=== PATIENT | male | born 1960 | race African-American/Black ===

== ENCOUNTER → 2017-02-13 | Outpatient (CLI) | payer OTHER ==
--- NOTE | 2017-02-13 13:15 | RADIOLOGY REPORT (SQ) ---
EXAM DESCRIPTION: LUMBAR SPINE COMPLETE COMPLETED DATE/TIME: 02/13/2017 11:29 am REASON FOR STUDY: SACROILIITIS, NOT ELSEWHERE CLASSIFIED M46.1 SACROILIITIS, NOT ELSEWHERE CLASSIFI ED M25.551 PAIN IN RIGHT HIP M25.552 PAIN IN LEFT HIP COMPARISON: None. NUMBER OF VIEWS: Five views including obliques. TECHNIQUE: AP, lateral, oblique, and sacral radiographic images acquired of the lumbar spine. LIMITATIONS: None. FINDINGS: MINERALIZATION: Normal. SEGMENTATION: Normal. No transitional anatomy. ALIGNMENT: Normal. VERTEBRAE: Maintained height. No fracture or worrisome bone lesion. DISCS: Preserved height. No significant osteophytes or end plate irregularity. POSTERIOR ELEMENTS: Hypertrophic facet changes are present at L5-S1. HARDWARE: None in the spine. PARASPINAL SOFT TISSUES: Normal. PELVIS: Intact as visualized. No fractures or worrisome bone lesions. SI joints intact. OTHER: No other significant finding. IMPRESSION: Facet arthropathy. There is no acute abnormality. TECHNICAL DOCUMENTATION: JOB ID: [id number] [employer]- All Rights Reserved
--- NOTE | 2017-02-13 13:16 | RADIOLOGY REPORT (SQ) ---
EXAM DESCRIPTION: SACROILIAC JOINTS COMPLETED DATE/TIME: 02/13/2017 11:29 am REASON FOR STUDY: SACROILIITIS, NOT ELSEWHERE CLASSIFIED M46.1 SACROILIITIS, NOT ELSEWHERE CLASSIFI ED M25.551 PAIN IN RIGHT HIP M25.552 PAIN IN LEFT HIP COMPARISON: None. NUMBER OF VIEWS: Three views. TECHNIQUE: AP and oblique views of the sacroiliac joints. LIMITATIONS: None. FINDINGS: MINERALIZATION: Normal. BONES: No acute fracture or dislocation. No worrisome bone lesions. No significant osteophytes. JOINTS: The sacroiliac joints are patent. No unusual widening, sclerosis, or fusion. SOFT TISSUES: No soft tissue swelling. No radio-opaque foreign body. OTHER: Facet arthropathy is present in the lower lumbar spine. IMPRESSION: Lower lumbar facet arthropathy with no acute abnormality of the sacroiliac joints. TECHNICAL DOCUMENTATION: JOB ID: [id number] [employer]- All Rights Reserved
--- NOTE | 2017-02-13 13:17 | RADIOLOGY REPORT (SQ) ---
EXAM DESCRIPTION: HIPS BILATERAL COMPLETED DATE/TIME: 02/13/2017 11:29 am REASON FOR STUDY: PAIN IN RIGHT HIP,PAIN IN LEFT HIP M46.1 SACROILIITIS, NOT ELSEWHERE CLASSIFIED M 25.551 PAIN IN RIGHT HIP M25.552 PAIN IN LEFT HIP COMPARISON: None. NUMBER OF VIEWS: Two views TECHNIQUE: AP pelvis and additional frog-leg view of both hips. LIMITATIONS: None. FINDINGS: MINERALIZATION: Normal. HIPS: No acute fracture or dislocation. No worrisome bone lesions. PELVIS AND SACRUM: No acute fracture or dislocation. No worrisome bone lesions. PUBIS AND ISCHIUM: No acute fracture. LOWER LUMBAR SPINE: Facet arthropathy is present at L5-S1. SOFT TISSUES: No findings. OTHER: No other significant finding. IMPRESSION: Lower lumbar facet arthropathy with normal hips. TECHNICAL DOCUMENTATION: JOB ID: [id number] [employer]- All Rights Reserved
--- NOTE | 2017-02-13 13:22 | RADIOLOGY REPORT (SQ) ---
EXAM DESCRIPTION: FEMUR BILATERAL 2 VIEWS COMPLETED DATE/TIME: 02/13/2017 11:29 am REASON FOR STUDY: PAIN IN RIGHT HIP,PAIN IN LEFT HIP M46.1 SACROILIITIS, NOT ELSEWHERE CLASSIFIED M 25.551 PAIN IN RIGHT HIP M25.552 PAIN IN LEFT HIP COMPARISON: None. NUMBER OF VIEWS: Two views. TECHNIQUE: Two radiographic images acquired of the right and left femur to include hip and knee in a t least one projection. LIMITATIONS: None. FINDINGS: MINERALIZATION: Normal. BONES: No acute fracture. No worrisome bone lesions. SOFT TISSUES: No obvious swelling or foreign body. OTHER: No other significant finding. IMPRESSION: NEGATIVE STUDY OF THE RIGHT AND LEFT FEMURS. NO RADIOGRAPHIC EVIDENCE FOR ACUTE INJURY. TECHNICAL DOCUMENTATION: JOB ID: [id number] [employer]- All Rights Reserved
== END ==
LOC: OD 10:17
PROVIDERS: ATTEND Internal Medicine
DX: M46.1 Sacroiliitis, not elsewhere classified (principal); M25.551 Pain in right hip; M25.552 Pain in left hip
CPT/HCPCS: 72110; 72200; 73522; 73552

== ENCOUNTER → 2017-03-16 | Outpatient (CLI) | payer OTHER ==
--- NOTE | 2017-03-16 10:22 | RADIOLOGY REPORT (SQ) ---
EXAM DESCRIPTION: MRI RT UPPER JOINT WITHOUT COMPLETED DATE/TIME: 03/16/2017 8:48 am REASON FOR STUDY: R SHOULDER PAIN M25.511 PAIN IN RIGHT SHOULDER COMPARISON: None. TECHNIQUE: Right shoulder images acquired and stored on PACS. Multiplanar imaging to include fat sen sitive sequences such as T1, water sensitive sequences such as FST2/STIR, cartilage sensitive sequenc es such as FSPD/gradient-echo sequences. LIMITATIONS: None. FINDINGS: BONE MARROW AND CORTEX: Mild subchondral cyst formation in the humeral head. JOINT OR BURSAL EFFUSION: No significant joint or bursal fluid. No suggestion of loose bodies. GLENO-HUMERAL ARTICULATION: Normal articulation. No subluxation. No cystic change. No osteophytes or cartilage loss. ACROMION AND AC JOINT: Type 2. No down-sloping or distal spur. Sub-acromial space maintained. No si gnificant AC joint arthropathy. ROTATOR CUFF AND INTERVAL: Intermediate signal throughout the cuff. Focal area of low signal series 7, image 11 which could represent micro hydroxyapatite deposition. No abnormality seen on recent federico in films to correlate. Linear high intrasubstance signal in the infraspinatus musculotendinous junct ion. No full-thickness tear. No rotator interval tear. No rotator interval thickening to suggest adhesive capsulitis. LABRUM AND BICEPS LABRAL COMPLEX: Intact. No labral tear. Intra-articular long-head biceps tendon n ormal. Distal biceps in normal location in bicipital groove. REMAINDER OF LABRUM AND IGHL : No gross tear or paralabral cyst formation. Labral evaluation is less than optimal without joint distention. No thickening of IGHL to suggest adhesive capsulitis. PERIARTICULAR AND ADJACENT SOFT TISSUES: No masses or abnormal nodes. OTHER: No other significant finding. IMPRESSION: 1. Diffuse tendinopathy. Intrasubstance tear infraspinatus musculotendinous junction. No full-thick ness tear. TECHNICAL DOCUMENTATION: JOB ID: [id number] [employer]- All Rights Reserved
== END ==
LOC: RAD 07:53
PROVIDERS: ATTEND Internal Medicine
DX: M25.511 Pain in right shoulder (principal)

== ENCOUNTER → 2017-09-15 | Outpatient (CLI) | payer OTHER ==
--- NOTE | 2017-09-16 09:21 | RADIOLOGY REPORT (SQ) ---
EXAM DESCRIPTION: MRILLJ WO COMPLETED DATE/TIME: 09/15/2017 7:09 pm REASON FOR STUDY: OTHER SPECIFIED HIP DISORDERS, RIGHT HIP, LEFT HIP COMPARISON: Radiographs from 02/13/2017. Please also see separately dictated right hip MRI from same date. TECHNIQUE: Noncontrast multiplanar MR imaging. Sequences include wide field of view pelvis and focu sed hip of interest. Fat sensitive, water sensitive, and cartilage sensitive sequences. Specific hip of interest: Left LIMITATIONS: None. FINDINGS: MARROW SIGNAL: No marrow replacement, edema or suspicious signal in the lumbar spine or ma jority of the pelvis or femurs. Please see specific hip related findings below. SPECIFIC HIP OF INTEREST: Mild amount of hip joint fluid, no large effusion. Superior joint space n arrowing with prominent subchondral edema on both sides of the joint. Associated osteophytes and mil d cystic subchondral changes as well. Irregular tear throughout the superior labrum. No regional mu scle tear or bursitis. No evidence of fracture or suspicious bone lesion. OPPOSITE HIP: Please see dedicated separate report from same date. REMAINDER OF THE OSSEOUS PELVIS: SI joints normal. Symphasis pubis intact. No Avulsion injury evide nt. INTRA- AND EXTRAPELVIC SOFT TISSUES: No intrapelvic mass or free fluid. Bladder normal. No extrapelv ic mass. No inguinal hernia or adenopathy. IMPRESSION: 1. Marked left hip arthropathy as above. Changes presumably related to degenerative di sease. No fracture or worrisome bone lesion. Please see separate right hip MR dedicated report from same date.
--- NOTE | 2017-09-16 09:27 | RADIOLOGY REPORT (SQ) ---
EXAM DESCRIPTION: MRIRLJ WO COMPLETED DATE/TIME: 09/15/2017 7:09 pm REASON FOR STUDY: OTHER SPECIFIED HIP DISORDERS, RIGHT HIP, LEFT HIP COMPARISON: Radiographs from 02/13/2017. Left hip MRI from same date, please refer to separate repor t. TECHNIQUE: Noncontrast multiplanar MR imaging. Sequences include wide field of view pelvis and focu sed hip of interest. Fat sensitive, water sensitive, and cartilage sensitive sequences. Specific hip of interest: Right LIMITATIONS: None. FINDINGS: MARROW SIGNAL: Please see left hip MR report. SPECIFIC HIP OF INTEREST: Mild joint fluid, no large effusion. Loss of the superior joint space wit h patchy subchondral edema. Prominent cysts/geodes in the femoral head with lesser mild cystic whiting es on the acetabular side of the joint. Macerated superior labrum, extensively torn. No regional mu scle tear or bursitis. No suspicious bone lesion or fracture. OPPOSITE HIP: See dedicated separate report. REMAINDER OF THE OSSEOUS PELVIS: SI joints normal. Symphasis pubis intact. No Avulsion injury evide nt. INTRA- AND EXTRAPELVIC SOFT TISSUES: No intrapelvic mass or free fluid. Bladder normal. No extrapelv ic mass. No inguinal hernia or adenopathy. IMPRESSION: 1. Extensive right hip arthropathy. Presumably degenerative in etiology. No suspicious bone lesion or fracture identified. This is a bilateral process, see separately dictated left hip M RI same date.
== END ==
LOC: RAD 17:49
PROVIDERS: ATTEND Orthopaedic Surgery
DX: M25.851 Other specified joint disorders, right hip (principal); M25.852 Other specified joint disorders, left hip

== ENCOUNTER → 2019-05-22 | Outpatient (CLI) | payer OTHER, MEDICAID ==
--- NOTE | 2019-05-22 11:47 | RADIOLOGY REPORT (SQ) ---
EXAM DESCRIPTION: MRI LUMBAR SPINE WITHOUT COMPLETED DATE/TIME: 05/22/2019 11:11 am REASON FOR STUDY: LOW BACK PAIN M54.5 LOW BACK PAIN COMPARISON: None. TECHNIQUE: Sagittal and Axial imaging includes T1, T2, STIR and gradient echo sequences. Coronal T2/ HASTE imaging. LIMITATIONS: None. FINDINGS: VISUALIZED UPPER ABDOMEN: Limited evaluation. No acute or suspicious findings suggested. SEGMENTATION: No transitional anatomy. The lowest well-developed disc space is labeled L5-S1. ALIGNMENT: Anatomic. VERTEBRAE: Intact. 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 DISC SIGNAL: Loss of signal at L5-S1 consistent with desiccation. Mild disc space narrowing at L2-L3 and L3-L4. POSTERIOR ELEMENTS: Intact. 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 HARDWARE: None in the spine. CORD AND CONUS: Normal in size and signal intensity. Conus at the appropriate level. SOFT TISSUES: No aortic aneurysm seen. No bulky retroperitoneal adenopathy or mass. No paraspinal mas s or fluid. L1-L2: No significant spinal stenosis or exit foraminal stenosis. L2-L3: No significant spinal stenosis or exit foraminal stenosis despite mild facet arthropathy. L3-L4: Bilateral facet arthropathy. No high-grade central stenosis. There is bilateral foraminal na rrowing. This is due to facet arthropathy along with congenitally short pedicles. L4-L5: Annular disc bulging. Bilateral facet arthropathy. This combination results in bilateral for aminal narrowing. L5-S1: Annular disc bulging. Bilateral facet arthropathy. This in conjunction with a short pedicles results in bilateral foraminal stenosis. LOWER THORACIC: Incompletely imaged. No stenosis seen. SACRUM: Visualized upper sacrum intact. OTHER: No other significant findings. 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 This results in bilateral foraminal stenosis at these levels. No focal disc herniation. TECHNICAL DOCUMENTATION: JOB ID: [id number]- All Rights Reserved Reading location - IP/workstation name: [email or web address]
== END ==
LOC: RAD 10:17
PROVIDERS: ATTEND Orthopaedic Surgery
DX: M48.07 Spinal stenosis, lumbosacral region (principal); M54.5 Low back pain
CPT/HCPCS: 72148